=== PATIENT | male | born 1940 | race Hispanic/Latino ===

== ENCOUNTER 2016-08-02 13:21 | Emergency (ER) | payer OTHER ==
[~2016-08-02] VITALS: Ht 165.1 cm; Wt 63.5 kg
[2016-08-02 13:27] VITALS: BP 141/57
--- NOTE | 2016-08-02 13:28 | ED ANKLE/FOOT INJURY COMPLAINT ---
History of Present Illness General Chief Complaint: Lower Extremity Problems Stated Complaint: REDNESS TO LEFT TOE Source: patient, old records Exam Limitations: no limitations Vital Signs & Intake/Output Vital Signs & Intake/Output Vital Signs Date Time Temp Pulse Resp B/P B/P Pulse O2 O2 Flow FiO2 Mean Ox Delivery Rate 08/02 1327 97.7 72 20 141/57 98 Room Air Allergies Coded Allergies: MDX - Codeine (CODEINE) (Intermediate, GI UPSET 10/25/12) Reconcile Medications Cephalexin (Keflex) 500 MG CAPSULE 1 CAP PO TID infection Triage Note: PAINFUL RED LEFT GREAT TOE. PT DENIES INJURY Triage Nurses Notes Reviewed? yes Occurred: last week Duration: day(s): (3), constant Timing: recent history Severity: mild Severity Numbers: 3 Pain/Injury Location: Left: 1st toe. Method of Injury: unknown No Modifying Factors: none Associated Symptoms: redness HPI: 76-year-old diabetic male presents to the ER for evaluation complaining of a mild aching constant nonradiating painful left first toe. He denies any known injury or trauma states symptoms have been gradual onset for the past 3 days. He denies discharge or pain with range of motion of the toe. He denies any redness streaking up his foot he denies any foot or other toe pain or similar episodes in the past no recent trauma is not taken anything for her symptoms or soccer until today. No fever no chills. He denies history of neuropathy, no numbness or tingling in foot (WALTER CORONADO) Past History Travel History Traveled to [place] past 21 day No Medical History Any Pertinent Medical History? see below for history Endocrine: diabetes Surgical History Surgical History: none Psychosocial History What is your primary language Polish Tobacco Use: Never used ETOH Use: denies use Illicit Drug Use: denies illicit drug use Family History Hx Contributory? No (WALTER CORONADO) Review of Systems Review of Systems Constitutional: Reports: see HPI. All Other Systems: Reviewed and Negative Comments Review of systems: See HPI, All other systems negative. Constitutional, no chills no fever, no malaise HEENT: No visual changes no sore throat no congestion Cardiovascular: No chest pain , no palpitation Skin: See HPI Respiratory: No dyspnea no cough no sputum GI: No nausea no vomiting, no diarrhea,n : No dysuria Muscle skeletal: No joint pain, no back pain, no neck pain, Neurologic: No numbness no confusion, no headache Psych: No stress Heme/endocrine: No bruising Immunology: No lymphadenopathy (WALTER CORONADO) Physical Exam Physical Exam General Appearance: well developed/nourished, alert, awake Leg/Knee/Thigh Left: normal range of motion Comments: Well-developed well-nourished patient in no apparent distress. HEENT: Atraumatic, extraocular motion intact Neck: Supple, FROM Back: FROM Cardiovascular: Regular rate and rhythms Respiratory: No respiratory distress. Patient speaking in full complete sentences. Breath sounds clear to auscultation bilaterally: NO W/R/R upper Extremities: full range of motion Hip/Pelvis: Atraumatic/Stable. FROM. Knee: Atraumatic/stable. FROM. Leg: Atraumatic. Nontender. No edema, 5 out of 5 strength in the lower extremity, normal dorsiflexion of great toe bilaterally, gross sensation is intact. Ankle/Foot: Mild erythema over the base of the left first nailbed left first toe there is no streaking up the foot the foot and rest of toes are atraumatic nontender full sensation noted to the first toe, no induration or fluctuance stable. Skin intact. FROM. No swelling, no effusion. No laxity on exam Pulses: Normal/equal DP/PT pulses bilaterally. Brisk cap refill Neuro: awake, alert, and oriented to person, place and time. There were no obvious focal neurologic abnormalities. Skin: Warm & dry;No appreciable rash on exposed skin Psych: Mood affect normal, normal memory normal judgment. (WALTER CORONADO) Progress Differential Diagnosis: cellulitis, gout, fracture, dislocation, sprain, contusion, compartmental syndrome, paroynchia Plan of Care: I discussed with the patient at length all of their results. I had an extensive conversation regarding need for close follow up with their primary care physician this week as well as return precautions. I answered all of their questions, they feel comfortable with the plan and follow-up care. I discussed the medications that they will receive with the patient. I gave them signs and symptoms that could indicate an adverse reaction. I have advised them to limit their activities until they can see how they respond to the medication. (WALTER CORONADO) Departure Departure Time of Disposition: 1338 Disposition: HOME OR SELF CARE Condition: Stable Clinical Impression Primary Impression: Paronychia Referrals: MURALI VILLARREAL,Jaci HECTOR (PCP/Family) Additional Instructions: follow up with your pmd dr johnson on thursday for wound check. keflex as directed- this waas sent to [facility] in [place]. warm soaks as discussed for your foot. return with any concerns: worsening redness, if you develop fever, chills or any other concerns Departure Forms: Customer Survey General Discharge Information Prescriptions: Current Visit Scripts Cephalexin (Keflex) 1 CAP PO TID #21 CAP (WALTER CORONADO) PA/LACER AND TIER Co-Sign Statement Statement: ED Attending supervision documentation- [] I saw and evaluated the patient. I have also reviewed all the pertinent lab results and diagnostic results. I agree with the findings and the plan of care as documented in the PA's/LACER AND TIER's documentation. [X] I have reviewed the ED Record and agree with the PA's/LACER AND TIER's documentation. [] Additions or exceptions (if any) to the PAs/LACER AND TIER's note and plan are summarized below: [] (BRUNO VILLARREAL,CASTRO Thorpe)
[2016-08-02] MEDS ORDERED: KEFLEX500 M1 PO (13:42)
== END 2016-08-02 13:57 ==
LOC: ERH 13:21
DX: L03.032 Cellulitis of left toe (principal)

== ENCOUNTER 2017-07-17 17:07 | Emergency (ER) | payer OTHER ==
[~2017-07-17] VITALS: Ht 165.1 cm; Wt 68.0 kg
[~2017-07-17 17:07] MED LIST: ASPIRIN EC81 M1 PO; AUGMENTIN 875-1 EACH PO; HUMALOG MI100 UNIT/3 SC; KEFLEX500 M1 PO
--- NOTE | 2017-07-17 18:06 | ED GENERAL ADULT ---
History of Present Illness General Chief Complaint: General Adult Stated Complaint: HIGH BLOOD SUGAR, 340 Source: patient Exam Limitations: no limitations Vital Signs & Intake/Output Vital Signs & Intake/Output Vital Signs Date Time Temp Pulse Resp B/P B/P Pulse O2 O2 Flow FiO2 Mean Ox Delivery Rate 07/17 2148 96.3 68 18 141/65 97 Room Air 07/17 1923 78 18 133/60 98 Room Air 07/17 1830 Room Air 07/17 1830 74 18 115/55 97 Room Air 07/17 1730 97.9 69 15 99/54 98 Room Air Room Air Allergies Coded Allergies: codeine (Intermediate, NAUSEA 07/17/17) Reconcile Medications Amoxicillin/Potassium Clav (Augmentin 875-125 Tablet) 875 MG-125 MG TABLET 1 TAB PO BID bronchitis Aspirin (Ecotrin*) (Unknown Strength) TABLET.DR (Unknown Dose) PO DAILY HEART (Reported) Insulin NPL/Insulin Lispro (Humalog Mix 75-25 Kwikpen) (Unknown Strength) INSULN.PEN (Unknown Dose) SC TIDAC DM (Reported) Triage Note: PT TO ED FOR C/C OF NECK, HEAD AND ABD PAIN THAT STARTED LAST NIGHT WITH DIZZINESS AND NAUSEA, WEAKNESS, ALSO HIGH BLOOD SUGARS. FINGERSTICK IN 316. 99/54 IN TRIAGE. Triage Nurses Notes Reviewed? yes Onset: Gradual Duration: day(s): Timing: recent history Injury Environment: home Severity: moderate No Modifying Factors: none HPI: Patient is a 77-year-old male with history of hypertension and diabetes presenting to the emergency department with chief complaint of generalized malaise, diffuse abdominal discomfort, decreased by mouth intake and dizziness is midline for the past day or 2. Nothing seems to make symptoms better, changing positions makes dizziness worse. She denies any diarrhea. No urinary frequency urgency or dysuria. Patient does admit to slight decreased by mouth intake. He isn't checking his sugars at home and they've been high. Patient denies any visual changes. Denies numbness or tingling. (Ximena Nguyen) Past History Travel History Traveled to [place] past 21 day No Medical History Any Pertinent Medical History? see below for history Neurological: NONE EENT: NONE Cardiovascular: hypertension, hyperlipidemia Respiratory: NONE Gastrointestinal: NONE Hepatic: NONE Renal: NONE Musculoskeletal: NONE Psychiatric: NONE Endocrine: diabetes Blood Disorders: NONE Cancer(s): NONE IMAGER/Reproductive: NONE Surgical History Surgical History: none Psychosocial History What is your primary language Faroese Tobacco Use: Quit >30 days ago ETOH Use: denies use Illicit Drug Use: denies illicit drug use Family History Hx Contributory? No (Ximena Nguyen) Review of Systems Review of Systems Constitutional: Reports: see HPI. Comments Review of systems: See HPI, All other systems negative. Constitutional, no chills fever or weight loss HEENT: No visual changes no sore throat no congestion Cardiovascular: No chest pain ,palpitation , orthopnea or ankle swelling Skin, no jaundice no rashes Respiratory: No dyspnea cough sputum or hemoptysis GI: No nausea no vomiting : No dysuria No hematuria Muscle skeletal: no back pain Neurologic: No numbness no confusion no headache Psych: No stress anxiety or depression,. Heme/endocrine: No bruising no bleeding, pos polydipsia Immunology: No splenectomy or history of AIDS (Ximena Nguyen) Physical Exam Physical Exam General Appearance: well developed/nourished, no apparent distress, alert, awake , comfortable Comments: Well-developed well-nourished person in no acute distress HEENT: extraocular motion intact, no nystagmus. Pupils equally round and reactive to light and accommodation. Nose is atraumatic. External auditory canal and Tympanic membranes clear. Pharynx normal. No swelling or edema. Neck: Supple, no lymphadenopathy, normal range of motion without pain or tenderness, no nuchal rigidity. Back: Nontender Cardiovascular: Regular rate and rhythms no murmurs rubs or gallops, normal JVP Respiratory: Chest nontender. No respiratory distress.breath sounds clear to auscultation bilaterally Abdomen: Soft, mild diffuse tenderness to palpation without rebound or guarding, nondistended, no appreciable organomegaly. Normal bowel sounds. No ascites Extremity: No edema, no calf tenderness to palpation, normal and equal pulses. Neuro: Alert oriented x3, motor sensory normal, cranial nerves II through XII grossly intact. Skin: No appreciable rash on exposed skin, skin is warm and dry. Psych: Mood and affect is normal, memory and judgment is normal. Core Measures ACS in differential dx? Yes CVA/TIA Diagnosis: No Sepsis Present: No Sepsis Focused Exam Completed? No (Ximena Nguyen) Progress Differential Diagnoses I considered the following diagnoses in my evaluation of the patient: ACS, pancreatitis, DKA, gastritis, viral syndrome, electrolyte abnormality, orthostatic hypotension, acute kidney injury Plan of Care: Orders Procedure Date/time Status TROPONIN LEVEL 07/17 2129 Complete EKG 07/17 2129 Active Add-on Test (ER Only) 07/17 1938 Active Add-on Test (ER Only) 07/17 1824 Active MISTAKE 07/17 1824 Active TROPONIN LEVEL 07/18 1823 Complete LIPASE 07/18 1823 Complete AMYLASE 07/18 1823 Complete FingerStick- Glucose 07/18 1711 Active SERUM OSMOLALITY 07/17 1710 Complete COMPREHENSIVE METABOLIC PANEL 07/17 1710 Complete CBC WITHOUT DIFFERENTIAL 07/17 1710 Complete ACETONE 07/17 1710 Complete EKG 07/17 1710 Active Laboratory Tests 07/17/17 2213: Troponin I < 0.01 07/17/171824: Urine Color Cancelled, Urine Clarity Cancelled, Urine pH Cancelled, Ur Specific Steen Cancelled, Urine Protein Cancelled, Urine Ketones Cancelled, Urine Nitrite Cancelled, Urine Bilirubin Cancelled, Urine Urobilinogen Cancelled, Ur Leukocyte Esterase Cancelled, Ur Microscopic Cancelled, Urine Hemoglobin Cancelled, Urine Glucose Cancelled 07/17/171823: Anion Gap 14, Estimated GFR > 60, BUN/Creatinine Ratio 36.4 H, Glucose 255 H, Serum Osmolality 312 H, Calcium 9.3, Total Bilirubin 0.5, AST 13 L, ALT 16 L, Alkaline Phosphatase 105, Troponin I < 0.01, Total Protein 6.1 L, Albumin 3.3 L, Globulin 2.8, Albumin/Globulin Ratio 1.2, Amylase 61, Lipase 41, CBC w Diff NO MAN DIFF REQ, RBC 4.62 L, MCV 85.3, MCH 28.9, MCHC 33.9, RDW 13.7, MPV 8.0, Gran % 62.3, Lymphocytes % 29.0, Monocytes % 7.7, Eosinophils % 0.6, Basophils % 0.4, Absolute Granulocytes 4.9, Absolute Lymphocytes 2.3, Absolute Monocytes 0.6 , Absolute Eosinophils 0, Absolute Basophils 0, Acetone Level NEGATIVE Patient medicated with IV hydration to help with blood glucose level. Orthostatics are negative. Pending CT of abdomen sign. Patient will be signed out to JASSI CLAIRE pending repeat troponin and EKG. (Ximena Nguyen) 1919 Discussed with the patient and his family his CAT scan results he is resting in no acute distress denies any complaints at this time pending repeat troponin 07/17/2017 11:13:34 PMI discussed with the patient at length all of their results. I had an extensive conversation regarding need for close follow up with their primary care physician as well as retail experience specialist this week as well as return precautions. I answered all of their questions, they feel comfortable with the plan and follow-up care. (Holly KEENE,Claudio) Diagnostic Imaging: Viewed by Me: Radiology Read, CT Scan. Discussed w/RAD: Radiology Read, CT Scan. Radiology Impression: PATIENT: ESTUARDO BURKS PRESENT AGE : 77 PATIENT ACCOUNT NO: [id number] : 39 LOCATION: ER ORDERING PHYSICIAN: Ximena KEENE SERVICE DATE: 07/17/17 EXAM TYPE: RAD - XRY-PORTABLE CHEST XRAY EXAMINATION: XR PORTABLE CHEST CLINICAL INFORMATION: Abdominal pain. Concern for cardiomegaly or widening mediastinum COMPARISON: Chest x-ray 04/19/2017 TECHNIQUE: Portable frontal view of the chest was obtained. 7:05 PM FINDINGS: No significant abnormality is noted involving the heart, lungs, mediastinum, bony thorax or soft tissues. Heart size is normal. The cardiomediastinal contours are normal without widening of the mediastinum. IMPRESSION: Unremarkable examination. DICTATED BY: Luis Manuel Rivera MD DATE/TIME DICTATED:07/17/171953 LABEL DESIGNER:DAYRON DATE/TIME TRANSCRIBED:1953 CONFIDENTIAL, DO NOT COPY WITHOUT APPROPRIATE AUTHORIZATION. < Electronically signed in Other Vendor System> SIGNED BY: Luis Manuel Rivera MD 1957 Initial ED EKG: left anterior fascicular block, sinus rhythm 82 bpm Prior EKG: unchanged (Ximena Nguyen) Radiology Impression: PATIENT: ESTUARDO BURKS PRESENT AGE : 77 PATIENT ACCOUNT NO: [id number] : 39 LOCATION: ER ORDERING PHYSICIAN: Ximena KEENE SERVICE DATE: 07/17/17 EXAM TYPE: CAT - CT ABD & PELVIS W IV CONTRAST EXAMINATION: CT ABDOMEN AND PELVIS WITH CONTRAST CLINICAL INFORMATION: Abdominal pain COMPARISON: None TECHNIQUE: Multidetector volumetric imaging was performed of the abdomen and pelvis following IV administration of 95 mL of Optiray 320 intravenous contrast. Sagittal and coronal reformatted images were obtained on the technologist's workstation. DLP: 327.84 mGy-cm FINDINGS: LUNG BASES: The visualized lung bases are unremarkable. LIVER, GALLBLADDER, AND BILIARY TREE: The liver is normal in size, shape, and attenuation. No focal hepatic lesion or biliary ductal dilatation is present. The gallbladder is unremarkable with no evidence of radiopaque gallstones, gallbladder wall thickening, or obvious pericholecystic inflammatory changes. PANCREAS: Unremarkable. SPLEEN: Unremarkable. ADRENAL GLANDS: Unremarkable. KIDNEYS AND URETERS: The kidneys are normal in size, shape, and attenuation. No hydronephrosis, hydroureter, or calculi seen. No perinephric stranding. BLADDER: Unremarkable. GASTROINTESTINAL TRACT: There is diverticulosis of the sigmoid colon without diverticulitis. No acute change of the bowel. No bowel obstruction. No bowel wall thickening or edema. Moderate volume of stool throughout the colon. The appendix is normal. The small bowel loops are unremarkable. ABDOMINAL WALL: No significant hernia is appreciated. LYMPH NODES: Normal. VASCULAR: Atherosclerotic vascular wall calcification of aorta and iliac vessels. PELVIC VISCERA: Prostate enlarged measuring 5.4 cm transverse with coarse calcifications within the prostate. OSSEOUS STRUCTURES: Multilevel degenerative spondylosis of spine with disc height narrowing and endplate spurs and facet joint arthrosis. IMPRESSION: No acute abnormality CT scan abdomen pelvis. DICTATED BY: Luis Manuel Rivera MD DATE/TIME DICTATED:07/17/172053 LABEL DESIGNER:DAYRON DATE/TIME TRANSCRIBED:07/17/172053 CONFIDENTIAL, DO NOT COPY WITHOUT APPROPRIATE AUTHORIZATION. <Electronically signed in Other Vendor System> SIGNED BY: Luis Manuel Rivera MD 07/17/172101 Repeat EKG: unchanged (Claudio Gotti) Departure Departure Condition: Stable Referrals: Negin VILLARREAL,Sanjay Luther (PCP/Family) Departure Forms: Customer Survey General Discharge Information (Ximena Nguyen) Departure Time of Disposition: 2258 Disposition: HOME OR SELF CARE Clinical Impression Primary Impression: Dizziness Secondary Impressions: Hyperglycemia Additional Instructions: Follow-up with your primary care physician and Dr. lam on Thursday. Return with any concerns. (Cluadio Gotti) PA/PRODUCTION MAINTENANCE TECHNICIAN Co-Sign Statement Statement: ED Attending supervision documentation- [] I saw and evaluated the patient. I have also reviewed all the pertinent lab results and diagnostic results. I agree with the findings and the plan of care as documented in the PA's/PRODUCTION MAINTENANCE TECHNICIAN's documentation. [X] I have reviewed the ED Record and agree with the PA's/PRODUCTION MAINTENANCE TECHNICIAN's documentation. [] Additions or exceptions (if any) to the PAs/PRODUCTION MAINTENANCE TECHNICIAN's note and plan are summarized below: [] (Hussain Howard DO) Critical Care Note Critical Care Note Critical Care Time: non-applicable (Aneudy KEENE,Ximena)
[2017-07-17 19:04] LABS: ABSOLUTE BASOPHIL COUNT 0 /CUMM (0.0-0.2); ABSOLUTE EOSINOPHIL COUNT 0 /CUMM (0.0-0.7); ABSOLUTE GRANULOCYTE CT 4.9 /CUMM (1.4-6.5); ABSOLUTE LYMPH COUNT 2.3 /CUMM (1.2-3.4); ABSOLUTE MONOCYTE COUNT 0.6 /CUMM (0.10-0.60); BASOPHIL % 0.4 % (0.0-2.0); EOSINOPHIL % 0.6 % (0-5); GRANULOCYTE % 62.3 % (42.2-75.2); HEMATOCRIT 39.4 % (42-52); MEAN CORPUSCULAR HGB 28.9 PG (27.0-31.0); MEAN CORPUSCULAR HGB CONC 33.9 G/DL (33.0-37.0); MEAN CORPUSCULAR VOLUME 85.3 FL (80.0-94.0); PLATELET COUNT 227 /CUMM (130-400); RBC DISTRIBUTION WIDTH 13.7 % (11.5-14.5); RED BLOOD CELL CT 4.62 /CUMM (4.70-6.10); WHITE BLOOD CELL COUNT 7.9 /CUMM (4.8-10.8)
--- NOTE | 2017-07-17 19:57 | RADIOLOGY REPORT ---
EXAMINATION: XR PORTABLE CHEST CLINICAL INFORMATION: Abdominal pain. Concern for cardiomegaly or widening mediastinum COMPARISON: Chest x-ray 04/19/2017 TECHNIQUE: Portable frontal view of the chest was obtained. 7:05 PM FINDINGS: No significant abnormality is noted involving the heart, lungs, mediastinum, bony thorax or soft tissues. Heart size is normal. The cardiomediastinal contours are normal without widening of the mediastinum. IMPRESSION: Unremarkable examination.
--- NOTE | 2017-07-17 21:02 | CT SCAN REPORT ---
EXAMINATION: CT ABDOMEN AND PELVIS WITH CONTRAST CLINICAL INFORMATION: Abdominal pain COMPARISON: None TECHNIQUE: Multidetector volumetric imaging was performed of the abdomen and pelvis following IV administration of 95 mL of Optiray 320 intravenous contrast. Sagittal and coronal reformatted images were obtained on the technologist's workstation. DLP: 327.84 mGy-cm FINDINGS: LUNG BASES: The visualized lung bases are unremarkable. LIVER, GALLBLADDER, AND BILIARY TREE: The liver is normal in size, shape, and attenuation. No focal hepatic lesion or biliary ductal dilatation is present. The gallbladder is unremarkable with no evidence of radiopaque gallstones, gallbladder wall thickening, or obvious pericholecystic inflammatory changes. PANCREAS: Unremarkable. SPLEEN: Unremarkable. ADRENAL GLANDS: Unremarkable. KIDNEYS AND URETERS: The kidneys are normal in size, shape, and attenuation. No hydronephrosis, hydroureter, or calculi seen. No perinephric stranding. BLADDER: Unremarkable. GASTROINTESTINAL TRACT: There is diverticulosis of the sigmoid colon without diverticulitis. No acute change of the bowel. No bowel obstruction. No bowel wall thickening or edema. Moderate volume of stool throughout the colon. The appendix is normal. The small bowel loops are unremarkable. ABDOMINAL WALL: No significant hernia is appreciated. LYMPH NODES: Normal. VASCULAR: Atherosclerotic vascular wall calcification of aorta and iliac vessels. PELVIC VISCERA: Prostate enlarged measuring 5.4 cm transverse with coarse calcifications within the prostate. OSSEOUS STRUCTURES: Multilevel degenerative spondylosis of spine with disc height narrowing and endplate spurs and facet joint arthrosis. IMPRESSION: No acute abnormality CT scan abdomen pelvis.
[2017-07-17 21:49] VITALS: BP 141/65
== END 2017-07-17 23:23 ==
LOC: ERH 17:07
PROVIDERS: Physician Assistant Medical
DX: R42 Dizziness and giddiness (principal); E11.65 Type 2 diabetes mellitus with hyperglycemia
CPT/HCPCS: 71045; 74177; 93005; 93010; 96361; 96374; J0131